=== PATIENT | male | born 1990 | race Caucasian/White ===

== ENCOUNTER 2024-02-02 17:24 | Emergency (ER) | payer OTHER ==
[~2024-02-02] VITALS: Ht 167.6 cm; Wt 79.8 kg
[2024-02-02 17:43] VITALS: BP 122/76; PULSE 78; RESP 22; TEMP 98; O2SAT 98
[2024-02-02] MEDS: KETOROLAC 60 MG/2 ML VIAL IM ONE (19:16)
[2024-02-02] MEDS ORDERED: IBUP-2213 PO (19:23)
[2024-02-02 20:13] VITALS: BP 120/74; PULSE 76; RESP 18; TEMP 98; O2SAT 98
== END 2024-02-02 20:13 | disposition home or self-care (01) ==
LOC: MED 17:24
DX: R51.9 Headache, unspecified (principal); R42 Dizziness and giddiness
CPT/HCPCS: 96372; 99283; J1885